=== PATIENT | female | born 1965 | race Caucasian/White ===

== ENCOUNTER → 2016-06-23 | Outpatient (CLI) | payer BC ==
--- NOTE | ~2016-06-23 | MR165 ---
[facility] A Service of [facility] & [facility] RADIOLOGY TEXT RESULTS PATIENT: BERNABE MARTINEZ LOCATION: [facility] : 67 UNIT #: [id number] AGE: [address]: LETITIA REN APRN SEX: F ORDER DR: [id number] [address] [address] [id number] MR#: [id number] Acc #: [id number] NAME: BERNABE MARTINEZ : 1965 SEX: F STUDY DATE/TIME: 06/23/2016 13:42 UNIT: [facility] ROOM: STUDY DESCRIPTION: MR Shoulder Wo Contrast Rt Attending Physician: Letitia Ren Aprn Referring Physician: Letitia Ren Aprn Ordering Physician: Letitia Ren Aprn Primary Care Physician: Edilberto Butts M.D. [facility] REPORT This report is preliminary unless electronic signature is present. EXAM MRI right shoulder, 06/23/2016 COMPARISON Right shoulder radiograph, 04/20/2016 HISTORY Order states fell at home. Pain in joint of right shoulder. History sheets states fell in bathtub 04/17/2016 with possible dislocation. Persistent shoulder pain, limited range of motion, decreased strength even after physical therapy. No surgery. 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 Coracoacromial and coracoclavicular ligaments are intact. There is a massive rotator cuff tear with full-thickness, full-width retracted supraspinatus and infraspinatus tendon tears. Tendons are retracted to the level of the medial third of the humeral head. There is secondary superior humeral migration and fluid in the subacromial-subdeltoid bursa. There is also fluid tracking to the infraspinatus myotendinous junction. There is minimal infraspinatus muscle atrophy. Supraspinatus shows no atrophy. Subscapularis and teres minor tendons are intact. Biceps anchor, biceps tendon, and glenoid labrum are normal. There is a glenohumeral effusion without visible chondromalacia or loose body. [facility]. [facility] A Service of [facility] & [facility] RADIOLOGY TEXT RESULTS PATIENT: BERNABE MARTINEZ LOCATION: [facility] : 67 UNIT #: [id number] AGE: [address]: LETITIA REN [employer]METIC MAKER SEX: F ORDER DR: There is no marrow lesion or fracture. Prominent red marrow pattern is noted but nonspecific. IMPRESSION 1. The predominant abnormality is a massive rotator cuff tear with full-thickness, full-width retracted supraspinatus and infraspinatus tendon tears detailed above. There is mild atrophy of the retracted infraspinatus muscle. 2. 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 3. Secondary subacromial-subdeltoid bursitis. 4. Nonspecific glenohumeral effusion. 5. Labrum and biceps are intact. Dictated by... Abbey Baker M.D. THIS IS AN ELECTRONICALLY VERIFIED REPORT Abbey Baker M.D. at 06/24/2016 11:24 AM TOYA/trey TD: 06/24/2016 10:47 JOB #: [id number] MRI CENTER REPORT Page 1 of 1
== END | disposition home or self-care (01) ==
LOC: SMRI 13:19
DX: M25.511 Pain in right shoulder (principal); S46.011A Strain of muscle(s) and tendon(s) of the rotator cuff of right shoulder, initial encounter; M62.511 Muscle wasting and atrophy, not elsewhere classified, right shoulder; M19.011 Primary osteoarthritis, right shoulder; M25.711 Osteophyte, right shoulder; M75.51 Bursitis of right shoulder; M25.411 Effusion, right shoulder; W19.XXXA Unspecified fall, initial encounter
CPT/HCPCS: 73221